=== PATIENT | female | born 1950 | race American Indian/Alaskan Native ===

== ENCOUNTER 2018-02-15 10:24 | Outpatient (CLI) | payer MEDICARE ==
--- NOTE | 2018-02-16 11:40 | PET Report ---
PET/CT:02/15/18 10:24:00 CLINICAL: Lung nodule. RADIOPHARMACEUTICAL: 13.708mCi F18-FDG. COMPARISON: None. TECHNIQUE- Following intravenous injection of F-18 FDG and an approximately 60 minute uptake period, CT and PET images from the mid skull to the upper thighs were acquired with the patient in the fasted state. No contrast was administered. The CT protocol used for this PET CT study is designed for attenuation correction and anatomic localization of PET abnormalities. This community board member CT is not desired to produce and cannot replace, [id number] diagnostic CT scans with specific imaging protocols for different body parts and indications. Plasma glucose at the time of this test: 97g/dl. The standardized uptake values (SUV) are normalized to patient body weight and indicate the highest activity concentration (SUV max) in a given disease site. FINDINGS: Brain--Physiologic FDG uptake in the visualized regions of the brain. Neck--Physiologic FDG uptake in mucosal structures. No mass or lymphadenopathy. Chest--Physiologic FDG uptake in mediastinal blood pool and myocardium. Lungs--Extensive bilateral multilobar centrilobular emphysema. An irregular crescent shaped scar of the right upper lobe is contiguous to the major fissure and measures approximately 7 cm transverse dimension by 1.8 cm AP dimension by 4.5 cm craniocaudal dimension. Focal FDG uptake in the lateral aspect of the scar with SUV 3.4. The rest of the scar has less FDG uptake and SUV 2.3. No other lung mass or nodule. Pleura/pericardium--No abnormal uptake. Thoracic nodes--No abnormal uptake. Hepatobiliary--No abnormal uptake. Liver background SUV mean, as a reference for comparing FDG studies, is 3.1 . No liver mass. Spleen--No abnormal uptake. Pancreas--No abnormal uptake. Adrenal Glands--No adrenal mass and no abnormal uptake. Kidneys/Ureters/Bladder--No abnormal uptake. Abdominopelvic Nodes--No abnormal uptake. Bowel/Peritoneum/Mesentery--No abnormal uptake. Pelvic organs--No abnormal uptake. Bones/Soft Tissues--No abnormal uptake and no suspicious bone lesion. Other findings: An enlarged fibroid uterus measures 15.6 cm craniocaudal dimension by 14.4 cm AP dimension by 9.4 cm transverse in addition. Ovaries are not identified. IMPRESSION- 1. Right upper lobe lung scar with probably benign FDG uptake. Recommend surveillance with either contrast CT or followup PET. 2. No other suspicious FDG uptake. 3. Extensive multilobar emphysema. 4. A 16 cm fibroid uterus.
== END 2018-02-15 10:25 | disposition home or self-care (01) ==
LOC: PET 10:24
DX: J43.8 Other emphysema (principal); R91.8 Other nonspecific abnormal finding of lung field; D25.9 Leiomyoma of uterus, unspecified
CPT/HCPCS: 78815; 82962; A9552